=== PATIENT | female | born 1990 | race Caucasian/White ===

== ENCOUNTER 2019-03-20 10:40 | Emergency (ER) | payer OTHER ==
[~2019-03-20] VITALS: Ht 172.7 cm; Wt 104.3 kg
[2019-03-20 10:50] VITALS: BP 152/61
--- NOTE | 2019-03-20 10:50 | NUR ---
PT AMBULATED TLO ER BED 2
--- NOTE | 2019-03-20 11:04 | NUR ---
28/F BIB SELF C/O INTERMITENT MID ABDOMINAL PAIN,N/V/D X 3 DAYS. ABDOMEN SOFT. MED HX:HTN, DM, HIGH CHOLESTEROL. PATIENT STATES PAIN OF 8/10 AT THIS TIME.PATIENT POSITIONED FOR COMFORT; HOB ELEVATED; BEDRAILS UP X1; BED DOWN. ER MD MADE AWARE OF PT STATUS.
[2019-03-20 12:16] LABS: BASOPHILS % (AUTO) 0.2 % (0.0-2.0); EOSINOPHILS % (AUTO) 0.1 % (0.0-4.0); HEMATOCRIT 35.4 % (36-48); HEMOGLOBIN 11.6 g/dL (12.0-16.0); LYMPHOCYTES # (AUTO) 1.2 K/uL (2.5-16.5); LYMPHOCYTES % (AUTO) 10.8 % (20.5-51.1); MEAN CORPUSCULAR HEMOGLOBIN 25 pg (27-31); MEAN CORPUSCULAR HGB CONC 33 g/dL (33-37); MEAN CORPUSCULAR VOLUME 76.3 fL (80-94); MONOCYTES # (AUTO) 0.3 K/uL (0.8-1.0); MONOCYTES % (AUTO) 2.9 % (1.7-9.3); NEUTROPHILS # (AUTO) 9.4 K/uL (1.8-7.7); PLATELET COUNT (AUTO) 299 K/uL (140-450); RED BLOOD CELL COUNT(AUTO) 4.64 MIL/uL (4.20-5.40); RED CELL DISTRIBUTION WIDTH 14.2 % (11.6-13.7); WHITE BLOOD COUNT (AUTO) 10.9 K/uL (4.8-10.8)
[2019-03-20 12:21] LABS: CARBON DIOXIDE 25.6 mmol/L (21-32); CREATININE 0.6 mg/dL (0.6-1.3); POTASSIUM 3.6 mmol/L (3.5-5.1)
[2019-03-20 12:27] LABS: ALBUMIN 3.5 g/dL (3.4-5.0); TOTAL BILIRUBIN 0.6 mg/dL (0.0-1.0)
[2019-03-20] MEDS: FAMOTIDINE 20 MG/2 ML VIAL IVP ONE (12:30)
[2019-03-20] MEDS: DIPHENOXYLATE /ATROPINE 2.5 MG TAB PO ONE (12:31)
[2019-03-20] MEDS: ONDANSETRON 4 MG/2 ML VIAL IVP ONE (12:31)
[2019-03-20] MEDS: NACL 0.9% 1,000 ML IV SCH (12:32)
--- NOTE | 2019-03-20 12:35 | NUR ---
IV 20GA RT HAND, BLOOD SENT TO LAB, IVP/IVF GIVEN-NADR AT THIS TIME. VVS, PT STABLE AT THIS TIME.
--- NOTE | 2019-03-20 13:01 | NUR ---
Patient discharged with v/s stable. Written and verbal after care instructions given and explained. Patient alert, oriented and verbalized understanding of instructions. Ambulatory with steady gait. All questions addressed prior to discharge. ID band removed. Patient advised to follow up with PMD. Rx of LOMOTIL/ZOFRAN given. Patient educated on indication of medication including possible reaction and side effects. Opportunity to ask questions provided and answered.
[2019-03-20 13:02] VITALS: BP 133/69
== END 2019-03-20 13:01 | disposition home or self-care (01) ==
LOC: MED 10:40
DX: R11.2 Nausea with vomiting, unspecified (principal); R19.7 Diarrhea, unspecified; R42 Dizziness and giddiness; I10 Essential (primary) hypertension; E11.9 Type 2 diabetes mellitus without complications; E78.00 Pure hypercholesterolemia, unspecified; F17.210 Nicotine dependence, cigarettes, uncomplicated
CPT/HCPCS: 36415; 80053; 81002; 81025; 83690; 85025; 96361; 96374; 96375; 99283; J2405; J3490; J7030

== ENCOUNTER 2019-07-17 14:29 | Emergency (ER) | payer OTHER ==
[~2019-07-17] VITALS: Ht 172.7 cm; Wt 104.3 kg
[2019-07-17 14:33] VITALS: BP 138/60
--- NOTE | 2019-07-17 14:50 | NUR ---
C/O COUGH, SORE THROAT , NAUSEA X LAST NIGHT MED HX: HTN, DM . DENIES N/V/D; SKIN IS PINK/WARM/DRY; AAOX4 WITH EVEN AND STEADY GAIT; LUNGS CLEAR BL; HR EVEN AND REGULAR; PT DENIES ANY FEVER, CP, SOB, AT THIS TIME; PATIENT STATES PAIN OF 8/10 AT THIS TIME; VSS; PATIENT POSITIONED FOR COMFORT; HOB ELEVATED; BEDRAILS UP X2; BED DOWN. ER MD MADE AWARE OF PT STATUS.
[2019-07-17] MEDS ORDERED: ALBUTEROL SULFATE/IPRATROPIU 3 ML SOL IH ONE (14:55)
[2019-07-17] MEDS ORDERED: DEXAMETHASONE 10 MG/ML VIAL IM ONE (14:55)
[2019-07-17 15:23] VITALS: BP 138/60
--- NOTE | 2019-07-17 15:31 | NUR ---
Patient discharged with v/s stable. Written and verbal after care instructions given and explained. Patient alert, oriented and verbalized understanding of instructions. Ambulatory with steady gait. All questions addressed prior to discharge. ID band removed. Patient advised to follow up with PMD. Rx of TESSALON, ALBUTEROL, TAMIFLU, AND IBUPROFEN given. Patient educated on indication of medication including possible reaction and side effects. Opportunity to ask questions provided and answered.
== END 2019-07-17 15:31 | disposition home or self-care (01) ==
LOC: MED 14:29
DX: J06.9 Acute upper respiratory infection, unspecified (principal); J45.909 Unspecified asthma, uncomplicated; E11.9 Type 2 diabetes mellitus without complications; I10 Essential (primary) hypertension; Z98.890 Other specified postprocedural states
CPT/HCPCS: 94640; 96372; 99283; J1100; J7620

== ENCOUNTER 2020-03-10 17:09 | Emergency (ER) | payer OTHER ==
[~2020-03-10] VITALS: Ht 177.8 cm; Wt 108.9 kg
[2020-03-10 17:11] VITALS: BP 153/72
--- NOTE | 2020-03-10 17:22 | NUR ---
PT AMB TO BED 7.
--- NOTE | 2020-03-10 17:48 | NUR ---
IRRIGATED AND PLACED NON-ADHERENT DRESSING ON LEFT THUMB OF PT
--- NOTE | 2020-03-10 17:56 | NUR ---
Patient discharged with v/s stable. Written and verbal after care instructions given and explained. Patient alert, oriented and verbalized understanding of instructions. Ambulatory with steady gait. All questions addressed prior to discharge. ID band removed. Patient advised to follow up with PMD. Rx of naproxyn/bacitracin given. Patient educated on indication of medication including possible reaction and side effects. Opportunity to ask questions provided and answered.
[2020-03-10 17:57] VITALS: BP 132/79
== END 2020-03-10 17:56 | disposition home or self-care (01) ==
LOC: MED 17:09
DX: S61.011A Laceration without foreign body of right thumb without damage to nail, initial encounter (principal); E11.9 Type 2 diabetes mellitus without complications; I10 Essential (primary) hypertension; J45.909 Unspecified asthma, uncomplicated; Z98.890 Other specified postprocedural states; W45.8XXA Other foreign body or object entering through skin, initial encounter; Y93.89 Activity, other specified; Y92.89 Other specified places as the place of occurrence of the external cause; Y99.8 Other external cause status
CPT/HCPCS: 90471; 90715; 99283